=== PATIENT | male | born 1940 | race Caucasian/White ===

== ENCOUNTER 2018-08-03 18:33 | Inpatient (IN) ==
--- NOTE | 2018-08-03 18:45 | Emergency Department Note ---
Disposition Clinical Impression: COPD (chronic obstructive pulmonary disease), Pleural effusion on left, Suspected malignant neoplasm, Esophagitis Disposition: Admitted As Inpatient Condition: Fair Referrals: NONE,PCP [Non-Partnered Physician] - Forms: ED Satisfaction Letter, Work/School Release Time of Disposition: 20:21 General Adult HPI - General Chief complaint: ED General Medical Stated complaint: trouble swallowing Time Seen by Provider: 08/03/18 18:34 Source: patient Mode of arrival: ambulatory Limitations: no limitations Nursing Notes Reviewed: Yes Vital Signs Reviewed: Yes - History of Present Illness HPI Narrative: 7-year-old male well known history of lung cancer who has a chest tube in for daily drainage of normally 100 2500 mils drained 500 mils today he's had no fevers no chills he's had decreased appetite he's had decreased eating and drinking according to family he states that he can drink he's had just hurts to drink he denies any chest pain chest pressure states it hurts to breathe though when he tries to eat breath denies any cough hemoptysis or sputum production denies any diarrhea melena hematochezia hematemesis family was checked today with actually significant for evaluation blurred vision double vision loss vision numbness tingling all systems reviewed and are otherwise negative Onset (ago): day(s) Location: chest Pain Scale: 0 Consistency: intermittent Improves with: nothing Worsens with: eating Associated symptoms: Reports: chest pain, nausea/vomiting, shortness of breath, weakness. Denies: confusion, cough, diaphoresis, fever/chills, headaches, loss of appetite, malaise, rash, seizure, syncope - Related Data Home Medications Medication Instructions Recorded Confirmed Metoprolol [Lopressor] 50 mg PO BID 09/30/15 08/03/18 Albuterol Neb [Proventil Neb] 2.5 mg IH Q6HR 07/01/18 08/03/18 Aspirin [Adult Aspirin Regimen] 81 mg PO DAILY 07/01/18 08/03/18 Acetaminophen [Tylenol] 500 mg PO Q6HR PRN 08/03/18 08/03/18 Dexamethasone [Decadron] 4 mg PO DAILY 08/03/18 08/03/18 Dextrose [Glucose Gel] 38 gm PO PRN PRN 08/03/18 08/03/18 Dimethicone/Zinc Oxide [Inzo Zinc 118.28 ml TP QAM 08/03/18 08/03/18 Oxide Barrier Cream] Docusate [Colace] 100 mg PO BID 08/03/18 08/03/18 Dronabinol [Marinol] 5 mg PO BID 08/03/18 08/03/18 Insulin Glargine,Hum.rec.anlog 32 unit SQ HS 08/03/18 08/03/18 [Basaglar Kwikpen U-100] Insulin LISPRO [HumaLOG] 17 units SQ TIDWM 08/03/18 08/03/18 Ipratropium/Albuterol Neb [Duoneb] 3 ml IH Q6HR PRN 08/03/18 08/03/18 Megestrol Acetate [Megace] 40 mg PO BID 08/03/18 08/03/18 Nut.tx.gluc.intoler,Lac-Fr,Soy 1 can PO TID 08/03/18 08/03/18 [Glucerna] Ondansetron HCl [Zofran] 4 mg PO Q6H PRN 08/03/18 08/03/18 Oxycodone HCl [Roxybond] 5 mg PO Q8H PRN 08/03/18 08/03/18 Sennosides [Senna] 8.6 mg PO QAM PRN 08/03/18 08/03/18 Previous Rx's Medication Instructions Recorded Apixaban [Eliquis] 5 mg PO BID #60 tablet 07/04/18 Diltiazem CD (24hr) [Cardizem CD] 120 mg PO DAILY #30 cap.er.24h 07/05/18 Allergies Allergy/AdvReac Type Severity Reaction Status Date / Time Tetanus Vaccines and Toxoid Allergy Swelling Verified 01/15/17 10:00 [Tetanus Vaccines & Toxoid] of Lip/Tongue/Throat Varenicline [From Chantix] Allergy Rash Verified 01/15/17 10:00 fenofibrate AdvReac See Verified 01/15/17 10:00 Comments Bppykhh-Frl-Hfn Reductase AdvReac myalgias Verified 01/15/17 10:00 Inhibitor [Statins] All systems ED: reviewed and negative except as stated. Review of Systems: As Per HPI Constitutional: Reports: weakness. Denies: fever, chills Eyes: Denies: eye pain, eye discharge ENT ED: Denies: ear pain, throat pain Cardiovascular: Reports: chest pain. Denies: palpitations Respiratory: Reports: cough, dyspnea. Denies: wheezes Gastrointestinal: Reports: nausea. Denies: abdominal pain, vomiting, hematemesis Genitourinary: Denies: urgency, dysuria, frequency Musculoskeletal: Denies: back pain Integumentary: Denies: rash, abrasion Neurological: Denies: headache, weakness Psychiatric: Reports: anxiety Endocrine: Denies: fatigue Hematological/Lymphatic: Denies: easy bleeding Allergic/Immunologic: Denies: facial swelling Past Medical History - Past Medical History Attestation: Yes The following information was validated with the patient. Source: patient, old records reviewed, obtained from family, nursing notes reviewed Medical history: Reports: arthritis, diabetes, hyperlipidemia, hypertension, peripheral artery disease, renal disease, other Surgical history: Reports: cataract, colectomy, coronary bypass (CABG), LE vascular intervention, vascular surgery Psychiatric history: Reports: no psych history - Social History Smoking Status: Former smoker Smokeless Tobacco Status: No Alcohol use: Reports: none Drug use: Reports: none Physical Exam - General Limitations: no limitations General appearance: alert, in no apparent distress, anxious, cachectic - Head Head exam: atraumatic, normocephalic, normal inspection - Eye Eye exam: Present: normal appearance, PERRL, EOMI - ENT ENT exam: normal exam, normal oropharynx, mucous membranes moist, TM's normal bilaterally, normal external ear exam - Neck Neck exam: Present: normal inspection, full ROM, trachea midline - Chest Chest inspection: Present: normal inspection, symmetric chest wall rise, other (Chest tube on the left-hand side has a serosanguineous type fluid noted within it does not appear to be cloudy) - Respiratory Respiratory exam: Present: other (Diminished breath sounds) - Cardiovascular Cardiovascular exam: Present: regular rate, normal rhythm, normal heart sounds - Abdominal Exam Abdominal exam: Present: soft, Non-Tender, normal bowel sounds. Absent: mass, pulsatile mass - Extremities Exam Extremities exam: Present: normal inspection, full ROM, normal capillary refill. Absent: tenderness, pedal edema, joint swelling, calf tenderness - Expanded Lower Extremity Exam Neurovascular/Tendon exam: Present: normal capillary refill, normal fine/light touch Gait: observed and normal - Back Exam Back exam: Present: normal inspection, full ROM. Absent: muscle spasm - Neurological Exam Neurological exam: Present: alert, oriented X3, CN II-XII intact, other (Able to swallow without difficulty liquids but acts though it hurts) - Psychiatric Psychiatric exam: Present: normal affect, normal mood - Skin Skin exam: Present: warm, dry, intact, normal color Course Course Narrative: Patient was seen and evaluated laboratory data was done at the insistence of family a flu swab was strep. The patient did not have indicators that were clearly consistent with this and not had high fevers chills and his symptoms. Be more gastrointestinal as result I advised the family that there could be charged for these patient was then admitted transfer to [facility] Vital Signs Temperature 98.1 F 08/03/18 18:34 Pulse Rate 105 08/03/18 18:34 Respiratory Rate 18 08/03/18 18:34 Blood Pressure 130/65 08/03/18 18:34 O2 Sat by Pulse Oximetry 97 08/03/18 18:34 Temperature 98.1 F 08/03/18 18:34 Pulse Rate 112 08/03/18 19:33 Respiratory Rate 20 08/03/18 19:33 Blood Pressure 131/80 08/03/18 19:33 O2 Sat by Pulse Oximetry 96 08/03/18 19:33 Oxygen Delivery Oxygen Delivery Nasal Cannula Medical Decision Making - [facility] Narrative Medical decision making narrative: Chest pain pneumonia worsening of cancer pleural effusion increasing - Medical Records Medical records reviewed: Yes I reviewed the patient's medical records. - Lab Data Lab results reviewed: Yes I reviewed the patient's lab results. Result diagrams: 08/03/18 19:18 08/03/18 19:18 Lab Results 08/03/18 08/03/18 08/03/18 Range/Units 19:18 19:18 19:18 WBC 8.9 (4.3-11.1) K/mcL RBC 3.53 L (4.19-5.50) M/mcL Hgb 11.1 L (12.9-16.9) g/dL Hct 33.1 L (37.5-50.1) % MCV 93.8 (83.0-100.0) fL MCH 31.4 (28.0-33.3) pg MCHC 33.5 (31.6-35.5) g/dL RDW 15.9 H (11.5-14.5) % Plt Count 267 (140-400) K/mcL MPV 11.5 (9.4-12.4) fL Immature Gran % 1.1 (0-4) % Seg Neutrophils % 80.5 % Lymphocytes % 11.2 % Monocytes % 6.1 % Eosinophils % 0.9 % Basophils % 0.2 % Neutrophils # 7.1 (1.6-8.9) K/mcL Lymphocytes # 1.0 (0.6-4.6) K/mcL Monocytes # 0.5 (0.0-1.3) K/mcL Eosinophils # 0.1 (0.0-0.6) K/mcL Basophils # 0.0 (0.0-0.2) K/mcL PT 19.6 H (9.4-12.1) Seconds INR 1.7 APTT 33.5 (26.0-36.0) Seconds Sodium 137 (136-145) mEq/L Potassium 4.7 (3.5-5.1) mEq/L Chloride 101 (98-107) mEq/L Carbon Dioxide 29 (23-29) mEq/L BUN 26 H (8-23) mg/dL Creatinine 0.92 (0.70-1.30) mg/dL Est GFR ( Amer) > 60 (> 60) Est GFR (Non-Af Amer) > 60 (> 60) BUN/Creatinine Ratio 28 H (6-26) Glucose 129 H (70-105) mg/dL Calculated Osmolality 290 (280-300) Calcium 10.0 (8.6-10.3) mg/dL - Radiology Data Radiology results reviewed: Yes I reviewed the patient's radiology results. ITS Impressions Chest CT 08/03/18 18:41 IMPRESSION: 1. Mild circumferential thickening of the distal esophagus suggestive of esophagitis. 2. Mediastinal and hilar lymphadenopathy, likely metastasis. When compared to the prior exam of June 20, 2018, there has been no significant interval change. 3. Multiple lung nodules indicative of pulmonary metastases. Compared to the prior exam, there has been progression with interval increase in size of multiple lung metastases. There also a new right pleural effusion which is probably malignant. 4. Worsening patchy airspace opacities in the right lung. Differential includes atypical pneumonia and lymphangitis. 5. Left pneumonectomy. 6. Incidental finding of a 2.4 cm left thyroid nodule which would better be assessed with a thyroid ultrasound, if it would alter patient's long-term management. 7. Coronary artery disease. D/ / 08/03/2018 19:39:52 Jhonny Crane MD / gilberto Interpreting Provider: Jhonny Crane MD Critical Care Time Critical Care Time: No
[2018-08-03 19:32] LABS: Basophils % 0.2 %; Eosinophils # 0.1 K/mcL (0.0-0.6); Eosinophils % 0.9 %; Hematocrit 33.1 % (37.5-50.1); Hemoglobin 11.1 g/dL (12.9-16.9); Immature Granulocytes % 1.1 % (0-4); Lymphocytes % 11.2 %; Mean Corpuscular HGB Conc 33.5 g/dL (31.6-35.5); Mean Corpuscular Hemoglobin 31.4 pg (28.0-33.3); Mean Corpuscular Volume 93.8 fL (83.0-100.0); Mean Platelet Volume 11.5 fL (9.4-12.4); Monocytes # 0.5 K/mcL (0.0-1.3); Monocytes % 6.1 %; Neutrophils # 7.1 K/mcL (1.6-8.9); Platelet Count 267 K/mcL (140-400); Red Blood Count 3.53 M/mcL (4.19-5.50); Red Cell Distribution Width 15.9 % (11.5-14.5); Segmented Neutrophils % 80.5 %
[2018-08-03 19:42] LABS: INR 1.7; Prothrombin Time 19.6 Seconds (9.4-12.1)
[2018-08-03 19:45] LABS: Activated Partial Thrombo Time 33.5 Seconds (26.0-36.0)
[2018-08-03 19:53] LABS: BUN/Creatinine Ratio 28 (6-26); Blood Urea Nitrogen 26 mg/dL (8-23); Carbon Dioxide 29 mEq/L (23-29); Chloride 101 mEq/L (98-107); Glucose 129 mg/dL (70-105); Osmolality,Calculated 290 (280-300); Potassium 4.7 mEq/L (3.5-5.1); Sodium 137 mEq/L (136-145); eGFR For Non-African Americans > 60 (> 60)
[2018-08-03] MEDS ORDERED: Levofloxacin 500 MG/100 ML 500 MG/100 ML BAG IVPB ONE (20:22)
[2018-08-03] MEDS ORDERED: Pantoprazole 40 MG VIAL IVP ONE (20:22)
[2018-08-03] MEDS ORDERED: Sucralfate 1 GM TABLET PO STA (20:22)
[2018-08-03] MEDS ORDERED: Sennosides 8.6 MG TABLET PO PRN (21:20)
[2018-08-03] MEDS ORDERED: NON-FORMULARY MEDICATION 1 EACH EACH (Nut.Tx.Gluc.Intoler,Lac-Fr,Soy [Glucerna] 1 CAN) PO SCH (21:20)
[2018-08-03] MEDS ORDERED: Ipratropium/Albuterol Neb 3 ML IH PRN (21:20)
[2018-08-03] MEDS ORDERED: *HR* OxyCODONE Immed Rel 5 MG TABLET PO PRN (21:20)
[2018-08-03] MEDS ORDERED: Naloxone 0.4 MG/ML INJ IVP PRN (21:20)
[2018-08-03] MEDS ORDERED: Ondansetron ODT 4 MG TAB.RAPDIS PO PRN (21:20)
[2018-08-03] MEDS ORDERED: Dextrose Gel 15 GM/37.5 ML TUBE PO PRN ×3 (21:20)
[2018-08-03] MEDS ORDERED: D5% in Water 1,000 ML IVC PRN (21:20)
[2018-08-03] MEDS ORDERED: *HR* Dextrose 50 % in Water (Syg) 50 ML SYRINGE IVP PRN (21:20)
[2018-08-03] MEDS ORDERED: NON-FORMULARY MEDICATION 1 EACH EACH (Insulin Glargine,Hum.Rec.Anlog [Basaglar Kwikpen U-1 SQ SCH (21:20)
[2018-08-03] MEDS ORDERED: Insulin DETEMIR 100 UNIT/ML per UNIT SQ ONE (22:15)
[2018-08-03] MEDS: Apixaban 5 MG TABLET PO SCH (22:34)
[2018-08-03] MEDS: 0.9 % Sodium Chloride 1,000 ML IVC SCH (22:34)
[2018-08-04] MEDS: Albuterol 2.5 MG/3 ML NEBULIZER IH SCH ×5 (00:17→22:18)
[2018-08-04 06:43] LABS: Basophils % 0.4 %; Eosinophils # 0.1 K/mcL (0.0-0.6); Eosinophils % 1.3 %; Hematocrit 28.9 % (37.5-50.1); Hemoglobin 9.6 g/dL (12.9-16.9); Immature Granulocytes % 1.5 % (0-4); Lymphocytes # 1.3 K/mcL (0.6-4.6); Lymphocytes % 15.6 %; Mean Corpuscular HGB Conc 33.2 g/dL (31.6-35.5); Mean Corpuscular Hemoglobin 31.1 pg (28.0-33.3); Mean Corpuscular Volume 93.5 fL (83.0-100.0); Mean Platelet Volume 11.1 fL (9.4-12.4); Monocytes # 0.6 K/mcL (0.0-1.3); Neutrophils # 6.1 K/mcL (1.6-8.9); Platelet Count 259 K/mcL (140-400); Red Blood Count 3.09 M/mcL (4.19-5.50); Red Cell Distribution Width 15.8 % (11.5-14.5); Segmented Neutrophils % 74.2 %
[2018-08-04 07:02] LABS: BUN/Creatinine Ratio 27 (6-26); Blood Urea Nitrogen 24 mg/dL (8-23); Calcium 9.4 mg/dL (8.6-10.3); Carbon Dioxide 27 mEq/L (23-29); Chloride 105 mEq/L (98-107); Glucose 65 mg/dL (70-105); Osmolality,Calculated 286 (280-300); Potassium 4.2 mEq/L (3.5-5.1); Sodium 137 mEq/L (136-145); eGFR For Non-African Americans > 60 (> 60)
[2018-08-04] MEDS: Apixaban 5 MG TABLET PO SCH ×2 (08:07→21:08)
[2018-08-04] MEDS: Diltiazem CD (24hr) 120 MG CAPSULE PO SCH (08:07)
[2018-08-04] MEDS: Desitin (Zinc Oxide) 56 GM TUBE TP SCH (08:07)
[2018-08-04] MEDS: Aspirin Enteric Coated 81 MG Tablet PO SCH (08:07)
[2018-08-04] MEDS: Insulin LISPRO 300 UNITS/3 ML VIAL SQ SCH ×6 (08:07→17:00)
[2018-08-04] MEDS: 0.9 % Sodium Chloride 1,000 ML IVC SCH (08:12)
[2018-08-04] MEDS ORDERED: *HR* OxyCODONE Immed Rel 5 MG TABLET PO PRN ×2 (15:54→17:12)
[2018-08-04] MEDS ORDERED: MOM Conc 10 ML UD.LIQ PO PRN (15:54)
--- NOTE | 2018-08-04 15:55 | Internal Med History&Physical ---
Date of Encounter: 08/04/18 Time of Encounter: 15:25 Assessment and Plan (1) Squamous cell carcinoma Current visit: No Status: Acute Primary lung cancer with known multiple lung metastases with possible hepatic and bone metastases. He is scheduled for follow-up appointment at [facility] August 08 2018 for discussion about possible immunotherapy. (2) COPD (chronic obstructive pulmonary disease) Current visit: Yes Status: Chronic Continue Levaquin and nebulizer treatments. Lactobacillus will be added. Qualifiers: COPD type: unspecified COPD Qualified Code(s): J44.9 - Chronic obstructive pulmonary disease, unspecified (3) Esophagitis Current visit: Yes Status: Acute ST evaluation has been ordered for dysphagia (4) Atrial fibrillation with RVR Current visit: No Status: Acute Now in normal sinus rhythm. Continue Lopressor, Cardizem, and Eliquis (5) DM2 (diabetes mellitus, type 2) Current visit: No Status: Chronic Hemoglobin A1c was 8.6% on 04/15/2018. Continue basal insulin and Accu-Cheks with SSI. Qualifiers: Diabetes mellitus supervisor intermediates insulin use: with usp use Diabetes mellitus complication status: with circulatory complication Diabetes mellitus complication detail: with peripheral angiopathy with gangrene Qualified Code(s): E11.52 - Type 2 diabetes mellitus with diabetic peripheral angiopathy with gangrene; Z79.4 - assisted (current) use of insulin (6) Unspecified essential hypertension Current visit: No Status: Chronic Continue Lopressor and Cardizem. Internal Medicine - H&P: HPI Chief complaint: Dysphagia, increased chest tube drainage Admitted From: Emergency Dept Plans for Post Hospital Care: Transfer [facility] History of present illness: Mr. Desir is a 77 year old male who was sent to emergency room from a local SNF after he had increased drainage from his chest tube and complaints of dysphagia. He was evaluated in emergency room and was found to have evidence of distal esophageal thickening suggestive of esophagitis. There was mediastinal and hilar lymphadenopathy consistent with metastases from known squamous cell lung cancer. There was increased size of multiple pulmonary metastases and a new right pleural effusion. Worsening patchy airspace opacities in the right lung were noted. He was admitted to [facility] floor for ongoing care needs. He was diagnosed with squamous cell lung cancer May 2018. He was discharged from [facility] to [facility] July 21 for ongoing care needs. He has received no treatment for cancer to date. He denies known previous malignancies. He has history of anemia and was found to be B12 deficient during his [facility] stay approximately one month ago. He received supplemental B12 IM. Iron profile was not done. Past Med Surg Social Fam HX - Past Medical History Medical history: arthritis, diabetes, hyperlipidemia, hypertension, peripheral artery disease, renal disease, other Additional medical history: OBESITY. CHRONIC KIDNEY DISEASE Psychiatric history: no psych history - Past Surgical History Surgical History: cataract, colectomy, coronary bypass (CABG), LE vascular intervention, vascular surgery Additional surgical history: FEMORAL TO POPLITEAL BYPASS. KNEE AMPUTATION - Social History Smoking Status: Former smoker Smokeless Tobacco Status: No Alcohol use: none Drug use: none - Family History Mother Living Status: Hx Family Cardiac Disorders: Yes Hx Family Autoimmune Disorders: Yes Internal Medicine - H&P: Meds Metoprolol [Lopressor] 50 mg PO BID 09/30/15 [History] Albuterol Neb [Proventil Neb] 2.5 mg IH Q6HR 07/01/18 [History] Aspirin [Adult Aspirin Regimen] 81 mg PO DAILY 07/01/18 [History] Apixaban [Eliquis] 5 mg PO BID #60 tablet 07/04/18 [Rx] Diltiazem CD (24hr) [Cardizem CD] 120 mg PO DAILY #30 cap.er.24h 07/05/18 [Rx] Acetaminophen [Tylenol] 500 mg PO Q6HR PRN 08/03/18 [History] Dexamethasone [Decadron] 4 mg PO DAILY 08/03/18 [History] Dextrose [Glucose Gel] 38 gm PO PRN PRN 08/03/18 [History] Dimethicone/Zinc Oxide [Inzo Zinc Oxide Barrier Cream] 118.28 ml TP QAM 08/03/18 [History] Docusate [Colace] 100 mg PO BID 08/03/18 [History] Dronabinol [Marinol] 5 mg PO BID 08/03/18 [History] Insulin Glargine,Hum.rec.anlog [Basaglar Kwikpen U-100] 32 unit SQ HS 08/03/18 [History] Insulin LISPRO [HumaLOG] 17 units SQ TIDWM 08/03/18 [History] Ipratropium/Albuterol Neb [Duoneb] 3 ml IH Q6HR PRN 08/03/18 [History] Megestrol Acetate [Megace] 40 mg PO BID 08/03/18 [History] Nut.tx.gluc.intoler,Lac-Fr,Soy [Glucerna] 1 can PO TID 08/03/18 [History] Ondansetron HCl [Zofran] 4 mg PO Q6H PRN 08/03/18 [History] Oxycodone HCl [Roxybond] 5 mg PO Q8H PRN 08/03/18 [History] Sennosides [Senna] 8.6 mg PO QAM PRN 08/03/18 [History] Allergy/AdvReac Type Severity Reaction Status Date / Time Tetanus Vaccines and Toxoid Allergy Swelling Verified 01/15/17 10:00 [Tetanus Vaccines & Toxoid] of Lip/Tongue/Throat Varenicline [From Chantix] Allergy Rash Verified 01/15/17 10:00 fenofibrate AdvReac See Verified 01/15/17 10:00 Comments Xxgnvut-Agr-Dqn Reductase AdvReac myalgias Verified 01/15/17 10:00 Inhibitor [Statins] All Systems PM: A 10-system review of systems was performed and is negative for pertinent findings except as documented above in the HPI. Review of systems: Gen.: His weight has decreased from 70.4 kg on 01/17/2017 to 59.2 kg on admission Cardiovascular: He was hospitalized June 2018 for new onset atrial fibrillation at [facility]. He converted back to normal sinus rhythm with treatment. He has history of hypertension. He denies ID heart failure DVT or pulmonary em bolus. Echocardiogram 07/01/2018 showed LVEF 65%. There was indeterminate diastolic function assessment due to atrial fibrillation. The interventricular septum and posterior wall thickness measurements were 0.80 and 1.10 cm respectively. There was mild tricuspid regurgitation. There was significantly elevated RVSP of 61 mmHg. He has known ASPVD and had left [facility] December 2016 for severe peripheral vascular disease. Prior to the [facility] he had bilateral femoropopliteal bypass surgeries. Lungs: He smoked since age 15 until May 2018 up to one and a half packs per day. He had pulmonary function testing 06/20/2018 which showed FVC 49% predicted, FEV1 41% predicted, FEV1/FVC 61%, MVV 28% predicted, RV 41% predicted, and DLCO (uncorrected) 39% predicted. There was no significant improvement postbronchodilator. Interpretation was severe obstructive and restrictive lung disease. He has worn oxygen 24/7 over the past few weeks. GI: Denies disorders of liver gallbladder X pancreas : He denies hematuria dysuria or kidney stones Neurologic: He denies known large distributional strokes or seizures however head CT 07/11/2018 showed suspected small remote infarct in the posterior left frontal lobe. Endocrine: He was diagnosed with DM 2 approximately 2007. He has hyperkalemia but denies known thyroid disease. Hematology/oncology: As per history of present illness Psychiatric: He denies anxiety depression or other mental health issues [place] skeletal: He denies arthritis gout or other bone joint or muscle disorders. - Constitutional Vitals: Temp Pulse Resp BP Pulse Ox 97.4 F L 84 17 121/66 98 08/04/18 10:00 08/04/18 10:00 08/04/18 10:00 08/04/18 10:00 08/04/18 10:00 Exam: Gen.: He is a well-developed well-nourished male lying in bed who appears slightly dyspneic and pale HEENT: Head is atraumatic and normal cephalic. Eyes: EOMI. There is no scleral icterus. Mouth: Mucosa is moist. Neck: Supple and nontender. There is no thyromegaly or adenopathy noted. Heart: Regular without murmurs gallops or ectopics Lungs: He has very diminished breath sounds over the left posterior hemithorax. The right lung shows no wheezes or crackles. Chest: He has a left Pleurx drainage tube in place in the left posterior inferior lung field. Abdomen: Soft and nontender. No masses or guarding are noted. Extremities: He has a well-healed left AKA. The right leg is warm to touch. Dorsalis pedis and posttibial pulses are not palpable. He has minimal DJD changes of his hands. Neurologic: Mental status: He is able to answer a few questions. 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 Cranial nerves: Smile is symmetric. Forehead wrinkles bilaterally. Tongue protrudes midline. EOMI. Motor: There is no pronator drift. Cerebellar: Finger to nose is intact bilaterally. Skin: Warm and dry Internal Med - H&P Results - Labs CBC & Chem 7: 08/04/18 06:00 08/04/18 06:00 Labs: Short CBC 08/03/18 08/04/18 Range/Units 19:18 06:00 WBC 8.9 8.2 (4.3-11.1) K/mcL Hgb 11.1 L 9.6 L D (12.9-16.9) g/dL Hct 33.1 L 28.9 L (37.5-50.1) % Plt Count 267 259 (140-400) K/mcL Neutrophils # 7.1 6.1 (1.6-8.9) K/mcL BMP 08/03/18 08/04/18 19:18 06:00 Sodium 137 137 Potassium 4.7 4.2 Chloride 101 105 Carbon Dioxide 29 27 BUN 26 H 24 H Creatinine 0.92 0.89 Glucose 129 H 65 L Calcium 10.0 9.4 - Impressions ITS Impressions Chest CT 08/03/18 18:41 IMPRESSION: 1. Mild circumferential thickening of the distal esophagus suggestive of esophagitis. 2. Mediastinal and hilar lymphadenopathy, likely metastasis. When compared to the prior exam of June 20, 2018, there has been no significant interval change. 3. Multiple lung nodules indicative of pulmonary metastases. Compared to the prior exam, there has been progression with interval increase in size of multiple lung metastases. There also a new right pleural effusion which is probably malignant. 4. Worsening patchy airspace opacities in the right lung. Differential includes atypical pneumonia and lymphangitis. 5. Left pneumonectomy. 6. Incidental finding of a 2.4 cm left thyroid nodule which would better be assessed with a thyroid ultrasound, if it would alter patient's long-term management. 7. Coronary artery disease. D/ / 08/03/2018 19:39:52 Jhonny Crane MD / gilberto Interpreting Provider: Jhonny Crane MD
[2018-08-04] MEDS ORDERED: Insulin DETEMIR 100 UNIT/ML X5UNITS SQ SCH (21:00)
[2018-08-04] MEDS ORDERED: Levofloxacin 750 MG/150 ML 750 MG/150 ML BAG IVPB SCH (21:00)
[2018-08-05] MEDS: Albuterol 2.5 MG/3 ML NEBULIZER IH SCH ×3 (04:29→15:39)
[2018-08-05 06:59] LABS: Basophils % 0.2 %; Eosinophils % 0.1 %; Hematocrit 28.1 % (37.5-50.1); Hemoglobin 9.2 g/dL (12.9-16.9); Immature Granulocytes % 1.5 % (0-4); Lymphocytes # 0.7 K/mcL (0.6-4.6); Lymphocytes % 7.3 %; Mean Corpuscular HGB Conc 32.7 g/dL (31.6-35.5); Mean Corpuscular Hemoglobin 30.7 pg (28.0-33.3); Mean Corpuscular Volume 93.7 fL (83.0-100.0); Mean Platelet Volume 10.8 fL (9.4-12.4); Monocytes # 0.5 K/mcL (0.0-1.3); Neutrophils # 7.7 K/mcL (1.6-8.9); Platelet Count 298 K/mcL (140-400); Red Cell Distribution Width 15.7 % (11.5-14.5); Segmented Neutrophils % 85.9 %
[2018-08-05 07:21] LABS: Alanine Aminotransferase 21 Units/L (7-52); Albumin 2.4 g/dL (3.5-5.7); Albumin/Globulin Ratio 0.9 (1.1-2.2); Alkaline Phosphatase 66 Units/L (34-104); Aspartate Amino Transferase 12 Units/L (13-39); BUN/Creatinine Ratio 26 (6-26); Bilirubin,Total 0.4 mg/dL (0.3-1.0); Blood Urea Nitrogen 21 mg/dL (8-23); Calcium 9.2 mg/dL (8.6-10.3); Carbon Dioxide 23 mEq/L (23-29); Chloride 105 mEq/L (98-107); Globulin 2.7 g/dL (2.4-3.5); Glucose 110 mg/dL (70-105); Osmolality,Calculated 290 (280-300); Potassium 4.2 mEq/L (3.5-5.1); Sodium 138 mEq/L (136-145); Total Protein 5.1 g/dL (6.4-8.9); eGFR For Non-African Americans > 60 (> 60)
[2018-08-05 09:02] LABS: % Iron Saturation 34 % (20-55); Iron 54 mcg/dL (65-175); Transferrin 113 mg/dL (203-362)
[2018-08-05] MEDS: Insulin LISPRO 300 UNITS/3 ML VIAL SQ SCH ×4 (09:07→14:34)
[2018-08-05 09:20] LABS: Folate 14.6 ng/mL (3.0-16.0)
[2018-08-05 09:21] LABS: Ferritin > 1500 ng/mL (20-250)
[2018-08-05] MEDS: Diltiazem CD (24hr) 120 MG CAPSULE PO SCH (09:35)
[2018-08-05] MEDS: Aspirin Enteric Coated 81 MG Tablet PO SCH (09:35)
[2018-08-05] MEDS: Apixaban 5 MG TABLET PO SCH (09:35)
[2018-08-05] MEDS: Desitin (Zinc Oxide) 56 GM TUBE TP SCH (09:36)
[2018-08-05 10:07] VITALS: BP 140/71
--- NOTE | 2018-08-05 10:29 | Discharge Summary ---
Date of Encounter: 08/05/18 Time of Encounter: 10:20 - Discharge Diagnosis (1) Squamous cell carcinoma Priority: Primary Status: Acute (2) COPD (chronic obstructive pulmonary disease) Priority: Secondary Status: Chronic Qualifiers: COPD type: unspecified COPD Qualified Code(s): J44.9 - Chronic obstructive pulmonary disease, unspecified (3) Esophagitis Priority: Secondary Status: Acute (4) Atrial fibrillation with RVR Priority: Secondary Status: Acute (5) DM2 (diabetes mellitus, type 2) Priority: Secondary Status: Chronic Qualifiers: Diabetes mellitus assisted insulin use: with assisted use Diabetes mellitus complication status: with circulatory complication Diabetes mellitus complication detail: with peripheral angiopathy with gangrene Qualified Code(s): E11.52 - Type 2 diabetes mellitus with diabetic peripheral angiopathy with gangrene; Z79.4 - detention (current) use of insulin (6) Unspecified essential hypertension Priority: Secondary Status: Chronic Hospital course: Mr. Desir is a 77 year old male who was sent to emergency room from a local SNF after he had increased drainage from his chest tube and complaints of dysphagia. He was evaluated in emergency room and was found to have evidence of distal esophageal thickening suggestive of esophagitis. There was mediastinal and hilar lymphadenopathy consistent with metastases from known squamous cell lung cancer. There was increased size of multiple pulmonary metastases and a new right pleural effusion. Worsening patchy airspace opacities in the right lung were noted. He was admitted to [facility] floor for ongoing care needs. Initial orders were written by the emergency room physician. I saw him on August 04 and performed a history and physical. He was started on Levaquin and lactobacillus. The WBC remained normal. There was persistent left shift present on differential the day of discharge. He remained afebrile. I felt he was stable for discharge back to SNF on August 05. He will continue with antibiotic and probiotic for [address] evaluation was done for complaints of dysphagia. He was changed to mechanical soft diet with thin liquids. I will start omeprazole for esophagitis visualized on chest CT in ER. He remained in normal sinus rhythm and will continue his current cardiac medica tion regimen. Anemia testing showed iron 54, transferrin saturation 33%, transferrin 113, ferritin> 1500, B12 318, and folate 14.6. He will be discharged back to nursing Center today and follow with his PCP Dr. Walls. - Time Spent with Patient Total time spent providing and/or coordinating discharge services: - Discharge Medications Prescriptions: Lactobacillus [Culturelle] 1 each PO BID 5 Days cap.sprink levoFLOXacin [Levaquin] 500 mg PO DAILY 5 Days tablet Omeprazole 20 mg PO DAILY 365 Days tablet.dr Home Medications: Metoprolol [Lopressor] 50 mg PO BID 09/30/15 [History] Albuterol Neb [Proventil Neb] 2.5 mg IH Q6HR 07/01/18 [History] Aspirin [Adult Aspirin Regimen] 81 mg PO DAILY 07/01/18 [History] Apixaban [Eliquis] 5 mg PO BID #60 tablet 07/04/18 [Rx] Diltiazem CD (24hr) [Cardizem CD] 120 mg PO DAILY #30 cap.er.24h 07/05/18 [Rx] Acetaminophen [Tylenol] 500 mg PO Q6HR PRN 08/03/18 [History] Dexamethasone [Decadron] 4 mg PO DAILY 08/03/18 [History] Dextrose [Glucose Gel] 38 gm PO PRN PRN 08/03/18 [History] Dimethicone/Zinc Oxide [Inzo Zinc Oxide Barrier Cream] 118.28 ml TP QAM 08/03/18 [History] Docusate [Colace] 100 mg PO BID 08/03/18 [History] Dronabinol [Marinol] 5 mg PO BID 08/03/18 [History] Insulin Glargine,Hum.rec.anlog [Basaglar Kwikpen U-100] 32 unit SQ HS 08/03/18 [History] Insulin LISPRO [HumaLOG] 17 units SQ TIDWM 08/03/18 [History] Ipratropium/Albuterol Neb [Duoneb] 3 ml IH Q6HR PRN 08/03/18 [History] Megestrol Acetate [Megace] 40 mg PO BID 08/03/18 [History] Nut.tx.gluc.intoler,Lac-Fr,Soy [Glucerna] 1 can PO TID 08/03/18 [History] Ondansetron HCl [Zofran] 4 mg PO Q6H PRN 08/03/18 [History] Oxycodone HCl [Roxybond] 5 mg PO Q8H PRN 08/03/18 [History] Sennosides [Senna] 8.6 mg PO QAM PRN 08/03/18 [History] Lactobacillus [Culturelle] 1 each PO BID 5 Days cap.pedroink 08/05/18 [Rx] Omeprazole 20 mg PO DAILY 365 Days tablet. 08/05/18 [Rx] levoFLOXacin [Levaquin] 500 mg PO DAILY 5 Days tablet 08/05/18 [Rx] Allergies/Adverse Reactions: Allergy/AdvReac Type Severity Reaction Status Date / Time Tetanus Vaccines and Toxoid Allergy Swelling Verified 01/15/17 10:00 [Tetanus Vaccines & Toxoid] of Lip/Tongue/Throat Varenicline [From Chantix] Allergy Rash Verified 01/15/17 10:00 fenofibrate AdvReac See Verified 01/15/17 10:00 Comments [id number] Reductase AdvReac myalgias Verified 01/15/17 10:00 Inhibitor [Statins] Date of admission: 08/04/18 17:32 Primary care physician: Kyle Walls MD Consults: 08/03/18 21:20 Consult to Nurse Navigator [CONS] Routine Comment: 08/04/18 15:50 Consult to Speech Therapy [CONS] Routine Comment: Evaluate, develop and implement POC Reason for Consult: Dysphagia Call Completed: No - Constitutional Vitals: Temp Pulse Resp BP Pulse Ox 97.0 F L 97 28 140/71 96 08/05/18 10:05 08/05/18 10:05 08/05/18 10:05 08/05/18 10:05 08/05/18 10:05 - Patient Status Disposition: Transfer SNF Condition: Fair - Discharge Instructions Follow Up With: Kyle Walls MD [Primary Care Provider] - 1 week - Diet and Activity Activity: resume usual activities as tolerated, wear oxygen at all times Diet: other (Soft diet with thin liquids)
--- NOTE | 2018-08-05 10:51 | Physician Discharge Referral ---
ExtendedCare Referral Info Transfer To: [facility] Provider in Charge: Irving Provider in Charge after Transfer: PCP (Titi) - Diagnosis (1) Squamous cell carcinoma Priority: Primary Status: Acute (2) COPD (chronic obstructive pulmonary disease) Priority: Secondary Status: Chronic (3) Esophagitis Priority: Secondary Status: Acute (4) Atrial fibrillation with RVR Priority: Secondary Status: Acute (5) DM2 (diabetes mellitus, type 2) Priority: Secondary Status: Chronic (6) Unspecified essential hypertension Priority: Secondary Status: Chronic Prognosis: Poor Aware of Diagnosis: Patient, Family Aware of Prognosis: Patient, Family - Transfer Medications Prescriptions: Lactobacillus [Culturelle] 1 each PO BID 5 Days cap.sprink levoFLOXacin [Levaquin] 500 mg PO DAILY 5 Days tablet Omeprazole 20 mg PO DAILY 365 Days tablet.dr Home Medications: Metoprolol [Lopressor] 50 mg PO BID 09/30/15 [History] Albuterol Neb [Proventil Neb] 2.5 mg IH Q6HR 07/01/18 [History] Aspirin [Adult Aspirin Regimen] 81 mg PO DAILY 07/01/18 [History] Apixaban [Eliquis] 5 mg PO BID #60 tablet 07/04/18 [Rx] Diltiazem CD (24hr) [Cardizem CD] 120 mg PO DAILY #30 cap.er.24h 07/05/18 [Rx] Acetaminophen [Tylenol] 500 mg PO Q6HR PRN 08/03/18 [History] Dexamethasone [Decadron] 4 mg PO DAILY 08/03/18 [History] Dextrose [Glucose Gel] 38 gm PO PRN PRN 08/03/18 [History] Dimethicone/Zinc Oxide [Inzo Zinc Oxide Barrier Cream] 118.28 ml TP QAM 08/03/18 [History] Docusate [Colace] 100 mg PO BID 08/03/18 [History] Dronabinol [Marinol] 5 mg PO BID 08/03/18 [History] Insulin Glargine,Hum.rec.anlog [Basaglar Kwikpen U-100] 32 unit SQ HS 08/03/18 [History] Insulin LISPRO [HumaLOG] 17 units SQ TIDWM 08/03/18 [History] Ipratropium/Albuterol Neb [Duoneb] 3 ml IH Q6HR PRN 08/03/18 [History] Megestrol Acetate [Megace] 40 mg PO BID 08/03/18 [History] Nut.tx.gluc.intoler,Lac-Fr,Soy [Glucerna] 1 can PO TID 08/03/18 [History] Ondansetron HCl [Zofran] 4 mg PO Q6H PRN 08/03/18 [History] Oxycodone HCl [Roxybond] 5 mg PO Q8H PRN 08/03/18 [History] Sennosides [Senna] 8.6 mg PO QAM PRN 08/03/18 [History] Lactobacillus [Culturelle] 1 each PO BID 5 Days cap.sprink 08/05/18 [Rx] Omeprazole 20 mg PO DAILY 365 Days tablet. 08/05/18 [Rx] levoFLOXacin [Levaquin] 500 mg PO DAILY 5 Days tablet 08/05/18 [Rx] Allergies/Adverse Reactions: Allergy/AdvReac Type Severity Reaction Status Date / Time Tetanus Vaccines and Toxoid Allergy Swelling Verified 01/15/17 10:00 [Tetanus Vaccines & Toxoid] of Lip/Tongue/Throat Varenicline [From Chantix] Allergy Rash Verified 01/15/17 10:00 fenofibrate AdvReac See Verified 01/15/17 10:00 Comments [id number] Reductase AdvReac myalgias Verified 01/15/17 10:00 Inhibitor [Statins] - Respiratory Orders Oxygen / L per min (2 L/m by nasal cannula /7.) Smoking Cessation: Smoking cessation has been advised. For more information, call the [place] Tobacco Quit Line at 0-983-WMIP-NOW. - Lab Orders Lab Orders: Other (include drug levels w/frequency) (CBC with differential, BMP in 1 week) - Mobility Orders Chair - Rehabiliation Orders Rehab Potential: Poor Rehab Orders: Evaluation for Physical Therapy, Evaluation for Occupational Therapy - Diet Orders Mechanical Soft CERTIFICATION: I certify that the transfer of the above named patient to an Extended Care Facility is necessary for the continuing treatment of the diagnosis listed. The above information is true and accurate reflection of patient's current condition. Confidential - Redisclosure prohibited without a patient's written consent.
== END 2018-08-05 16:05 | DRG 392 ==
LOC: INPPIK 18:33 → EMEROOPIK 18:33 → INPPIK 21:45
PROVIDERS: ADMIT Internal Medicine; ATTEND Internal Medicine